=== PATIENT | female | born 1940 | race Caucasian/White ===

== ENCOUNTER 2016-11-14 05:40 | Emergency (ER) | payer MEDICARE, MEDICAID ==
[~2016-11-14] VITALS: Ht 160 cm; Wt 80.0 kg
[2016-11-14 05:47] VITALS: Ht 160 cm; Wt 80.0 kg
[2016-11-14] MEDS ORDERED: SOD CHLORIDE 0.9% 500 ML IV STA (06:25)
--- NOTE | 2016-11-14 06:25 | ERA ---
ER Documentation Chief Complaint Date/Time DATE: 11/14/16 TIME: 06:24 Chief Complaint left flank pain x 1 day w/ vomiting HPI This is a 76-year-old female with a past medical history of hypertension, hyperlipidemia, diabetes, previous left-sided kidney stones, a recent left sided facial infection for which she is currently taking amoxicillin who is presenting with 1 day of left-sided flank pain, nausea and one episode of nonbilious nonbloody vomiting. Her pain is colicky, waxing and waning. It begins in the left flank and radiates down the left side of the back. She has not noticed any blood in her urine. She has had no changes with urination. She has had no obvious bleeding or pain or burning with urination. She does endorse chronic mild constipation that is unchanged. She has no abdominal pain. The patient denies feeling sick. The patient denies fever or chills. The patient has had no headache or vision changes. The patient denies lightheadedness or dizziness. The patient has had no chest pain or shortness of breath trouble breathing. The patient has had no focal deficits. The patient has had no weakness or numbness or tingling to the face or extremities. ROS All systems reviewed and are negative except as per history of present illness. Medications Home Meds Active Scripts Methylprednisolone* (Medrol* DOSE PACK) 4 Mg/Dose-Pack Tab.ds.pk, 4 MG PO . DIRECTED for 5 Days, PACKET Prov:TC REYES MD 11/14/16 Cyclobenzaprine Hcl* (Cyclobenzaprine Hcl*) 10 Mg Tablet, 5 MG PO QHS Y for MUSCLE SPASMS, #10 TAB Prov:TC REYES MD 11/14/16 Reported Medications Sitagliptin Phos/Metformin HCl (Janumet 50-1,000 mg Tablet) 1 Each Tablet, 1 EACH PO BID, TAB 11/14/16 Rosuvastatin Calcium* (Crestor*) 5 Mg Tablet, 5 MG PO QHS, #30 TAB 11/14/16 Insulin Aspart (Novolog Mix (70/30)) 100 Units/Ml Soln, 30 SC WITH BREAKFAST DINNE, EA 11/14/16 Esomeprazole Mag Trihydrate (Nexium) 40 Mg Capsule.dr, 40 MG PO DAILY, #30 CAP 11/14/16 Fenofibrate, Micronized (Fenofibrate) 134 Mg Capsule, 134 MG PO DAILY, CAP 11/14/16 Tamsulosin Hcl* (Tamsulosin Hcl*) 0.4 Mg Cap.er.24h, 0.4 MG PO DAILY Y for NEEDED, CAP 11/14/16 Gabapentin* (Gabapentin*) 100 Mg Capsule, 100 MG PO TID, #90 CAP 11/14/16 Amlodipine Besylate* (Norvasc*) 5 Mg Tablet, 5 MG PO DAILY, TAB 11/14/16 Metoprolol Succinate* (Toprol XL*) 50 Mg Tab.er.24h, 50 MG PO DAILY, #30 TAB 11/14/16 Amoxicillin* (Amoxicillin*) 500 Mg Cap, 500 MG PO TID, #30 CAP START DATE 11/12/16 FOR 7 DAYS 11/14/16 Ibuprofen* (Ibuprofen*) 600 Mg Tablet, 600 MG PO Q6H Y for PAIN, TAB 11/14/16 Lisinopril/Hydrochlorothiazide (Lisinopril-Hctz 20-12.5 mg Tab) 1 Each Tablet, 1 EACH PO DAILY, TAB 11/14/16 Allergies Allergies: Coded Allergies: No Known Allergy (Unverified , 11/14/16) PMhx/Soc Medical and Surgical Hx: pt denies Surgical Hx History of Surgery: No Hx Neurological Disorder: No Hx Respiratory Disorders: No Hx Cardiac Disorders: Yes (Hypertension, hyperlipidemia, diabetes) Hx Psychiatric Problems: No Hx Miscellaneous Medical Probl: Yes (Previous kidney stone) Hx Alcohol Use: No Hx Substance Use: No Hx Tobacco Use: No Smoking Status: Never smoker FmHx Family History: diabetes Physical Exam Vitals Vital Signs Date Time Temp Pulse Resp B/P Pulse Ox O2 Delivery O2 Flow Rate FiO2 11/14/16 09:56 74 20 150/62 97 11/14/16 09:00 71 20 150/76 97 11/14/16 07:54 78 20 151/77 97 11/14/16 05:47 98.2 84 20 169/93 97 Physical Exam Const: No apparent distress, well-developed, well-nourished, no current discomfort. Head: Atraumatic Eyes: Normal Conjunctiva. Extraocular movements intact. ENT: Normal External Ears, Nose. Upper Dentures. Dry Mucous Membranes. Neck: Full range of motion. ~ No meningismus. Resp: Clear to auscultation bilaterally Cardio: Regular rate and rhythm, no murmurs Abd: Soft, non tender, non distended. Normal bowel sounds Skin: No petechiae or rashes Back: No midline. Mild Left CVA tenderness Ext: No cyanosis, or edema Neur: Awake and alert, oriented 4. Cranial nerves intact. No facial droop. Normal strength and sensation in all extremities. Coordination with finger to nose normal. Psych: Normal Mood and Affect Result Diagram: 11/14/16 0648 11/14/16 0648 Results 24 hrs Laboratory Tests Test 11/14/16 06:48 White Blood Count 11.010^3/ul Red Blood Count 4.7810^6/ul Hemoglobin 14.3g/dl Hematocrit 42.5% Mean Corpuscular Volume 88.9fl Mean Corpuscular Hemoglobin 29.9pg Mean Corpuscular Hemoglobin Concent 33.6g/dl Red Cell Distribution Width 12.0% Platelet Count 79125^3/UL Mean Platelet Volume 11.2fl Neutrophils % 66.5% Lymphocytes % 24.1% Monocytes % 7.8% Eosinophils % 0.9% Basophils % 0.4% Nucleated Red Blood Cells % 0.0/100WBC Neutrophils # 7.410^3/ul Lymphocytes # 2.710^3/ul Monocytes # 0.910^3/ul Eosinophils # 0.110^3/ul Basophils # 0.010^3/ul Nucleated Red Blood Cells # 0.010^3/ul Urine Color STRAW Urine Clarity CLEAR Urine pH 6.0 Urine Specific [place] 1.024 Urine Ketones NEGATIVEmg/dL Urine Nitrite NEGATIVEmg/dL Urine Bilirubin NEGATIVEmg/dL Urine Urobilinogen NEGATIVEmg/dL Urine Leukocyte Esterase NEGATIVELeu/ul Urine Microscopic RBC 3/HPF Urine Microscopic WBC 1/HPF Urine Hemoglobin 1+mg/dL Urine Glucose 3+mg/dL Urine Total Protein NEGATIVEmg/dl Sodium Level 138mmol/L Potassium Level 4.4mmol/L Chloride Level 100mmol/L Carbon Dioxide Level 28mmol/L Anion Gap 14 Blood Urea Nitrogen 29mg/dl Creatinine 1.09mg/dl Glucose Level 243mg/dl Calcium Level 9.2mg/dl Total Bilirubin 0.1mg/dl Direct Bilirubin 0.00mg/dl Indirect Bilirubin 0.1mg/dl Aspartate Amino Transf (AST/SGOT) 24IU/L Alanine Aminotransferase (ALT/SGPT) 34IU/L Alkaline Phosphatase 72IU/L Troponin I < 0.012ng/ml Total Protein 8.5g/dl Albumin 4.2g/dl Globulin 4.30g/dl Albumin/Globulin Ratio 0.97 Lipase 106U/L Current Medications Medications (Trade) Dose Ordered Sig/Delfina Route PRN Reason Start Time Stop Time Status Last Admin Dose Admin Sodium Chloride (NS) 500 ml @ 500 mls/hr Q1H STAT IV 11/14/16 06:25 11/14/16 07:24 DC 11/14/16 08:46 Ketorolac Tromethamine (Toradol) 15 mg ONCE STAT IV 11/14/16 08:41 11/14/16 08:42 DC 11/14/16 08:46 Procedures/MDM MDM Patient's presentation warrants further investigation. She has a history of kidney stones and her symptoms today are consistent with a kidney stone, which I will evaluate for. The patient is not in any significant distress at this time. I will give her IV fluids and Toradol for her discomfort. That said she is older with multiple cardiac risk factors. I will evaluate for a cardiac etiology, but my suspicion is low at this time. LABS The patient's blood work was obtained and reviewed. The patient seemed shows mild leukocytosis but no left shift. The patient is afebrile, and I do not suspect a systemic infection at this time. The patient is not anemic today. The patient's platelet count is unremarkable. The patient's CMP shows no signs of electrolyte abnormality. She did have a mild hyperglycemia but no anion gap. I do not suspect DKA as the etiology of her symptoms. The patient's elevated sugar will need to be reevaluated by primary care physician. The patient is aware. The patient's creatinine is also mildly elevated at 1.01. This may be her baseline given her age. The patient has normal hepatic function testing. EKG EKG read by me: Rate/Rhythm: Regular rate, sinus rhythm at a rate of 77 Intervals: Mildly wide QRS complex associated with a right bundle branch block. A prolonged MS interval indicating a first-degree AV block. QT interval is less than 50% of the RR interval. Jarrell: Left shifted Impression: No evidence of acute ischemia. No ST or T-wave changes concerning for acute coronary syndrome. IMAGING Abd US IMPRESSION: 1. The kidneys and pancreas are not well visualized secondary to the patient's large body habitus and extensive overlying bowel gas. 2. Portions of the liver that are visualized, are unremarkable. Electronically viewed and signed by Mata Dubois Physician on 11/14/2016 08:44 CXR FINDINGS:The cardiomediastinal silhouette is enlarged. The aorta is calcified. The lung volumes are low with bibasilar atelectasis. No focal consolidation, pleural effusion or pneumothorax is seen. There are degenerative changes in the spine. IMPRESSION: Low lung volumes with bibasilar atelectasis. Cardiomegaly. Aortic atherosclerosis. Electronically viewed and signed by Physician Peter on 11/14/2016 07: 31 TREATMENT/DISPOSITION The patient was given IV fluids and Toradol in the emergency department with complete resolution of her symptoms. I do not see evidence of a urinary tract infection or a kidney stone on her urinalysis as she had no hematuria. The patient's pain was paraspinal in nature, so it was thought to be CVA tenderness may potentially be of a musculoskeletal etiology. The patient will need to follow-up with her primary care doctor in 1-3 days for reevaluation. At this time, the patient is stable for discharge. Departure Diagnosis: Primary Impression: Flank pain Condition: Stable TC REYES MD Nov 14, 2016 06:25
[2016-11-14] MEDS ORDERED: LISI1TAB6 PO (07:05)
[2016-11-14] MEDS ORDERED: IBUP-1542 PO (07:06)
[2016-11-14] MEDS ORDERED: AMOX500C2 PO (07:07)
[2016-11-14] MEDS ORDERED: METO-319 PO (07:07)
[2016-11-14] MEDS ORDERED: GABA100C14 PO (07:08)
[2016-11-14] MEDS ORDERED: AMLO5TAB4 PO (07:08)
[2016-11-14] MEDS ORDERED: FENO134C PO (07:09)
[2016-11-14] MEDS ORDERED: TAMS0.4C2 PO (07:09)
[2016-11-14] MEDS ORDERED: ESOM40CA PO (07:10)
[2016-11-14] MEDS ORDERED: NOVMIX SC (07:10)
[2016-11-14] MEDS ORDERED: SITA1TAB5 PO (07:11)
[2016-11-14] MEDS ORDERED: ROSU5TAB5 PO (07:11)
[2016-11-14 07:17] LABS: BASOPHILS % 0.4 % (0.0-2.0); EOSINOPHILS # 0.1 10^3/ul (0.0-0.5); EOSINOPHILS % 0.9 % (0.0-7.0); HEMATOCRIT 42.5 % (37.0-47.0); HEMOGLOBIN 14.3 g/dl (12.0-16.0); LYMPHOCYTES # 2.7 10^3/ul (0.8-2.9); LYMPHOCYTES % 24.1 % (15.0-51.0); MEAN CORPUSCULAR HEMOGLOBIN 29.9 pg (29.0-33.0); MEAN CORPUSCULAR HGB CONC 33.6 g/dl (32.0-37.0); MEAN CORPUSCULAR VOLUME 88.9 fl (82.0-101.0); MEAN PLATELET VOLUME 11.2 fl (7.4-10.4); MONOCYTE # 0.9 10^3/ul (0.3-0.9); MONOCYTES % 7.8 % (0.0-11.0); NEUTROPHIL # 7.4 10^3/ul (1.6-7.5); NEUTROPHILS % 66.5 % (39.0-77.0); PLATELET COUNT 216 10^3/UL (140-415); RED BLOOD COUNT 4.78 10^6/ul (4.20-5.40)
[2016-11-14 07:21] LABS: ADD UMIC YES; UR ASCORBIC ACID NEGATIVE (NEGATIVE); UR BILIRUBIN (Dip) NEGATIVE (NEGATIVE); UR BLOOD (Dip) 1+ mg/dL (NEGATIVE); UR CLARITY CLEAR (CLEAR); UR COLOR STRAW (YELLOW); UR GLUCOSE (Dip) 3+ mg/dL (NEGATIVE); UR KETONES (Dip) NEGATIVE (NEGATIVE); UR LEUKOCYTE ESTERASE (Dip) NEGATIVE Leu/ul (NEGATIVE); UR NITRITE (Dip) NEGATIVE (NEGATIVE); UR RBC 3 /HPF (0-5); UR SPECIFIC GRAVITY (Dip) 1.024 (1.003-1.030); UR TOTAL PROTEIN (Dip) NEGATIVE (NEGATIVE); UR UROBILINOGEN (Dip) NEGATIVE (NEGATIVE)
--- NOTE | 2016-11-14 07:31 | RADRPT ---
PROCEDURE: XR Chest. CLINICAL INDICATION: Abdominal pain TECHNIQUE: AP Portable chest. COMPARISON: 01/01/2008 FINDINGS: The cardiomediastinal silhouette is enlarged. The aorta is calcified. The lung volumes are low with bibasilar atelectasis. No focal consolidation, pleural effusion or pneumothorax is seen. There a re degenerative changes in the spine. IMPRESSION: Low lung volumes with bibasilar atelectasis. Cardiomegaly. Aortic atherosclerosis. Physician Peter Date Time Electronically viewed and signed by George Acosta Physician on 11/14/2016 07:31 /
[2016-11-14 07:57] LABS: ALANINE AMINOTRANSFERASE 34 IU/L (13-69); ALBUMIN 4.2 g/dl (3.3-4.9); ALBUMIN/GLOBULIN RATIO 0.97; ALKALINE PHOSPHATASE 72 IU/L (42-121); ANION GAP 14 (8-16); ASPARTATE AMINO TRANSFERASE 24 IU/L (15-46); BILIRUBIN,INDIRECT 0.1 mg/dl (0-1.1); BILIRUBIN,TOTAL 0.1 mg/dl (0.2-1.3); BLOOD UREA NITROGEN 29 mg/dl (7-20); CALCIUM 9.2 mg/dl (8.4-10.2); CARBON DIOXIDE 28 mmol/L (21-31); CHLORIDE 100 mmol/L (97-110); CREATININE 1.09 mg/dl (0.44-1.00); GLUCOSE 243 mg/dl (70-220); POTASSIUM 4.4 mmol/L (3.5-5.1); SODIUM 138 mmol/L (135-144); TOTAL PROTEIN 8.5 g/dl (6.1-8.1)
[2016-11-14 08:09] LABS: TROPONIN-I < 0.012 ng/ml (0.00-0.12)
[2016-11-14] MEDS ORDERED: KETOROLAC 15 MG INJ IV STA (08:41)
--- NOTE | 2016-11-14 08:44 | RADRPT ---
PROCEDURE: US Abdomen. CLINICAL INDICATION: L CVA tenderness, eval for hydronephrosis, compare to R TECHNIQUE: Multiple real-time images were acquired of the patient's abdomen and retroperitoneum ut ilizing a high resolution transducer. COMPARISON: None FINDINGS: Study is markedly limited by the patient's large body habitus and extensive overlying bowel gas. Por tions of the liver that are visualized, are unremarkable. The kidneys and pancreas are not well visu alized. IMPRESSION: 1. The kidneys and pancreas are not well visualized secondary to the patient's large body habitus a nd extensive overlying bowel gas. 2. Portions of the liver that are visualized, are unremarkable. RPTAT:AAJJ Physician Kristie Date Time Electronically viewed and signed by Mata Dubois Physician on 11/14/2016 08:44 /
[2016-11-14 09:56] VITALS: BP 150/62; PULSE 74; RESP 20
[2016-11-14] MEDS ORDERED: CYCL-319 PO (10:00)
[2016-11-14] MEDS ORDERED: MED4DP PO (10:00)
== END 2016-11-14 10:09 | disposition home or self-care (01) ==
LOC: E/R 05:40
DX: R10.9 Unspecified abdominal pain (principal); I10 Essential (primary) hypertension; E11.9 Type 2 diabetes mellitus without complications; Z79.4 Long term (current) use of insulin
CPT/HCPCS: 36415; 71010; 76705; 80053; 81001; 83690; 84484; 85025; 93005; 96374; 99285; J1885; J7040